=== PATIENT | female | born 1945 ===

== ENCOUNTER 2017-04-20 09:25 | Emergency (ER) | payer MEDICAID, OTHER ==
[2017-04-20 10:37] VITALS: BMI 28.5
[2017-04-20 10:42] VITALS: RESP 18; TEMP 98.1; O2SAT 98
--- NOTE | 2017-04-20 11:04 | ED PDOC ---
HPI: Skin/Bite Injury Time Seen by Provider: 04/20/17 10:22 Chief Complaint (Nursing): Abnormal Skin Integrity History Per: Patient History/Exam Limitations: no limitations Onset/Duration Of Symptoms: Days, Persistent, Other (2 weeks) Current Symptoms Are (Timing): Still Present Quality Of Symptoms: Itching Severity: Moderate Additional History Per: Patient Additional Complaint(s): Patient reports itching rash for 2 weeks. Rash is on the abdomen back, groins, and chest/trunk. NO fevers. No new products. No recent travel. No sick contacts. Past Medical History Reviewed: Historical Data, Nursing Documentation, Vital Signs Vital Signs: Last Vital Signs Temp 98.1 F 04/20/17 10:38 Pulse 113 H 04/20/17 10:38 Resp 18 04/20/17 10:38 BP 160/83 H 04/20/17 10:38 Pulse Ox 98 04/20/17 11:11 - Medical History PMH: No Chronic Diseases - Surgical History Surgical History: No Surg Hx - Family History Family History: States: No Known Family Hx - Home Medications Home Medications: Ambulatory Orders Medication Instructions Recorded Hydroxyzine Pamoate [Vistaril] 25 mg PO TID PRN #15 capsule 04/20/17 predniSONE [predniSONE Tab] 20 mg PO DAILY 10 Days tab 04/20/17 - Allergies Allergies/Adverse Reactions: Allergies Allergy/AdvReac Type Severity Reaction Status Date / Time No Known Allergies Allergy Verified 04/20/17 10:36 Review of Systems ROS Statement: Except As Marked, All Systems Reviewed And Found Negative Skin: Positive for: Rash Physical Exam - Reviewed Nursing Documentation Reviewed: Yes Vital Signs Reviewed: Yes - Physical Exam Appears: Positive for: Well, Non-toxic Head Exam: Positive for: ATRAUMATIC, NORMAL INSPECTION Skin: Positive for: Warm, Dry, Rash (macular urticarial rash diffuse on trunk, abdomen, groin, lower back bilateral) Eye Exam: Positive for: EOMI ENT: Positive for: Normal ENT Inspection Cardiovascular/Chest: Positive for: Regular Rate, Rhythm Respiratory: Positive for: Normal Breath Sounds. Negative for: Rales, Wheezing Gastrointestinal/Abdominal: Positive for: Soft. Negative for: Tenderness Extremity: Positive for: Normal ROM Neurologic/Psych: Positive for: Alert, Oriented - ECG O2 Sat by Pulse Oximetry: 98 Medical Decision Making Medical Decision Making: Impression Rash Diff include chronic urticaria, EM Disposition - Clinical Impression Clinical Impression: Rash - Patient ED Disposition Is Patient to be Admitted: No Doctor Will See Patient In The: Office Counseled Patient/Family Regarding: Studies Performed, Diagnosis, Need For Followup - Disposition Referrals: [facility] [Outside] Disposition: Routine/Home Disposition Time: 11:05 Condition: GOOD Additional Instructions: Take your medications as instructed. Follow up with your PCP within 1 week. Prescriptions: Hydroxyzine Pamoate [Vistaril] 25 mg PO TID PRN #15 capsule PRN Reason: Itching / Pruritus predniSONE [predniSONE Tab] 20 mg PO DAILY 10 Days tab Instructions: Urticaria (ED) Print Language: MALTESE
[2017-04-20 16:14] VITALS: BP 124/76; PULSE 88
== END 2017-04-20 11:20 | disposition home or self-care (01) ==
LOC: H.ER 09:25
DX: R21 Rash and other nonspecific skin eruption (principal)
CPT/HCPCS: 99281; Q0177